=== PATIENT | male | born 1950 | race Hispanic/Latino ===

== ENCOUNTER 2019-07-20 15:00 | Inpatient (IN) | payer OTHER ==
[~2019-07-20] VITALS: Ht 166.4 cm; Wt 66.0 kg
[2019-07-20 12:55] VITALS: BP 144/54
[2019-07-20 13:33] LABS: BASOPHILS % (AUTO) 0.7 % (0.0-5.0); EOSINOPHILS % (AUTO) 0.8 % (0.0-8.0); HEMATOCRIT 43.5 % (42-54); MEAN CORPUSCULAR HEMOGLOBIN 30.8 pg (27.0-33.0); MEAN CORPUSCULAR HGB CONC 33.6 g/dL (32.0-36.0); MEAN CORPUSCULAR VOLUME 91.6 fL (79-99); MONOCYTES % (AUTO) 6.4 % (3.0-13.0); NEUTROPHILS % (AUTO) 69.1 % (40.0-77.0); PLATELET COUNT (AUTO) 240 K/uL (130-400); RED BLOOD CELL COUNT(AUTO) 4.75 MIL/uL (4.50-6.20); RED CELL DISTRIBUTION WIDTH 13.1 % (11.0-15.5); WHITE BLOOD COUNT (AUTO) 8.1 K/uL (4.8-10.8)
[2019-07-20 13:43] LABS: POTASSIUM 4.1 mmol/L (3.5-5.1)
[~2019-07-20 15:00] MED LIST: LOSA25TA41 PO
[2019-07-20] MEDS: CEFAZOLIN SODIUM 1 GM VIAL IVP SCH (15:30)
[2019-07-20] MEDS ORDERED: [UNRECOGNIZED DRUG - OTHER] PO (16:16)
[2019-07-20] MEDS ORDERED: RESV100C PO (16:16)
[2019-07-20] MEDS ORDERED: NAPR-1141 PO (16:16)
[2019-07-20] MEDS ORDERED: LYCO10CA3 PO (16:16)
[2019-07-20] MEDS ORDERED: PROSTATIN PO (16:16)
[2019-07-20] MEDS ORDERED: GLUTATHIONE PO (16:16)
[2019-07-20] MEDS ORDERED: [UNRECOGNIZED DRUG - OTHER] PO (16:16)
[2019-07-20] MEDS ORDERED: [UNRECOGNIZED DRUG - OTHER] PO (16:16)
[2019-07-22] VITALS (27 sets, daily range): BP systolic 109–161; BP diastolic 49–89
[2019-07-22] MEDS ORDERED: LACTATED RINGERS 1000ML 1,000 ML IV ONE (06:23)
[2019-07-22] MEDS ORDERED: THROMBIN-JMI 20000 UNIT KIT TP ONE (06:52)
[2019-07-22] MEDS ORDERED: DURAMORPH PF1 MG/ML 10ML AMP IV ONE (06:52)
[2019-07-22] MEDS ORDERED: BUPIVACAINE/EPI/PF 0.5% 30ML VIAL IJ ONE (06:52)
[2019-07-22] MEDS ORDERED: BACITRACIN 50,000 UNIT VIAL ONE (06:52)
[2019-07-22] MEDS ORDERED: GLYCOPYRROLATE 1 MG/5 ML SYRINGE ONE (06:57)
[2019-07-22] MEDS ORDERED: LIDOCAINE PF 2% 5ML ABBOJECT ONE (06:57)
[2019-07-22] MEDS ORDERED: SUCCINYLCHOLINE 200MG/10ML SYR ONE (06:57)
[2019-07-22] MEDS ORDERED: DEXAMETHASONE SOD PHOSPHATE 10MG/ML 1ML VIAL ONE (06:57)
[2019-07-22] MEDS ORDERED: ONDANSETRON HCL 4 MG/2 ML VIAL ONE (06:58)
[2019-07-22] MEDS ORDERED: ROCURONIUM 10MG/1ML SYR 10 MG/ML ML ONE (06:58)
[2019-07-22] MEDS ORDERED: NEOSTIGMINE 5MG/5ML SYR IV ONE (06:58)
[2019-07-22] MEDS ORDERED: MIDAZOLAM HCL 1 MG/ML 2ML VIAL ONE (06:58)
[2019-07-22] MEDS ORDERED: PROPOFOL 10 MG/ML 20ML VIAL IV ONE ×2 (06:58→08:04)
[2019-07-22] MEDS ORDERED: FENTANYL CITRATE PF 50 MCG/1 ML 2ML VIAL ONE ×2 (06:59→08:11)
[2019-07-22] MEDS ORDERED: LIDOCAINE HCL 4% LTA SOL 4 ML VIAL ONE (07:03)
[2019-07-22] MEDS: CEFAZOLIN SODIUM 1 GM VIAL IVP SCH ×3 (07:30→18:24)
[2019-07-22] MEDS ORDERED: PROPOFOL 1000 MG/100 ML 0 ML IV ONE (08:28)
[2019-07-22] MEDS ORDERED: GENTAMICIN 80 MG/NS 100 ML PB 100 ML IV ONE (09:11)
[2019-07-22] MEDS ORDERED: SODIUM CHLORIDE 0.9% 10 ML VIAL IVP PRN (11:15)
[2019-07-22] MEDS ORDERED: PROMETHAZINE HCL 25 MG/ML 1ML AMPULE IM PRN (11:15)
[2019-07-22] MEDS ORDERED: HYDROCODONE/ACETAMINOPHEN 5/325 MG TAB PO PRN (11:15)
[2019-07-22] MEDS: DEXAMETHASONE SOD PHOSPHATE 4 MG/ML 1ML VIAL IVP SCH ×2 (11:15→18:25)
[2019-07-22] MEDS ORDERED: MORPHINE SULFATE 2 MG/ML 1ML SYG IVP PRN (11:15)
[2019-07-22] MEDS ORDERED: NALOXONE HCL 0.4 MG/1 ML ML ONE (12:04)
[2019-07-22] MEDS: LACTATED RINGERS 1000ML 1,000 ML IV SCH (16:44)
[2019-07-22] MEDS: [UNRECOGNIZED DRUG - OTHER] PO SCH (21:00)
[2019-07-23] VITALS: BP 117/63
[2019-07-23] MEDS: LACTATED RINGERS 1000ML 1,000 ML IV SCH ×2 (00:13→07:55)
[2019-07-23] MEDS: DEXAMETHASONE SOD PHOSPHATE 4 MG/ML 1ML VIAL IVP SCH ×3 (00:13→07:55)
[2019-07-23] MEDS: CEFAZOLIN SODIUM 1 GM VIAL IVP SCH ×3 (03:32→11:05)
[2019-07-23 04:00] VITALS: BP 132/66
[2019-07-23] MEDS: NAPROXEN 250 MG TAB PO PRN (06:12)
[2019-07-23 07:00] VITALS: BP 126/51
[2019-07-23] MEDS: GLUTATHIONE 500 MG PO SCH (07:55)
[2019-07-23] MEDS: RESVERATROL 100 MG PO SCH (07:55)
[2019-07-23] MEDS: [UNRECOGNIZED DRUG - OTHER] PO SCH (07:55)
[2019-07-23] MEDS: [UNRECOGNIZED DRUG - OTHER] PO SCH (07:55)
[2019-07-23] MEDS: LYCOPENE 10 MG PO SCH (07:55)
[2019-07-23] MEDS: PROSTATIN PO SCH (07:55)
[2019-07-23] MEDS: LOSARTAN 50 MG TABLET PO SCH (09:22)
--- NOTE | 2019-07-23 18:05 | NUR ---
INITIAL MET W PT; S/P BACK SURGERY, AAOX 3, ACTIVE, MOVING, RESTLESS; STATES NO DME, DRIVES, INDP OF ADLS, [facility] WILL PROVIDE TRANSPORT HOME WILL FOLLOW UP WITH DR. MOORE FOR ANY DSG CHANGE ORDER TO LUMBAR INCISION. NO HH ORDERS GIVEN AT THIS TIME. PT ON ONE TO ONE FOR AGITATION POST OP/ BAD REACTION TO ANETHESIS. STILL APPEARS VERY HIGH ENERGY. Addendum: 07/23/19 at 2046 by CHANDRIKA BROOKS RN Amended: Links added.
[2019-07-23 20:00] VITALS: BP 108/64
[2019-07-23] MEDS: [UNRECOGNIZED DRUG - OTHER] PO SCH (21:00)
[2019-07-24] MEDS: LACTATED RINGERS 1000ML 1,000 ML IV SCH (03:08)
[2019-07-24] MEDS: CEFAZOLIN SODIUM 1 GM VIAL IVP SCH ×2 (03:15→11:15)
[2019-07-24] MEDS: NAPROXEN 250 MG TAB PO PRN ×2 (03:19→10:53)
[2019-07-24 05:42] VITALS: BP 145/72
[2019-07-24 08:00] VITALS: BP 135/71
--- NOTE | 2019-07-24 08:09 | NUR ---
Dr Velazquez rounded and stated pt could be d/c home today but after home health set up for him; i will speak to cw about setting it up when she arrives
[2019-07-24] MEDS: RESVERATROL 100 MG PO SCH (09:00)
[2019-07-24] MEDS: LYCOPENE 10 MG PO SCH (09:00)
[2019-07-24] MEDS: GLUTATHIONE 500 MG PO SCH (09:00)
[2019-07-24] MEDS: [UNRECOGNIZED DRUG - OTHER] PO SCH (09:00)
[2019-07-24] MEDS: [UNRECOGNIZED DRUG - OTHER] PO SCH (09:00)
[2019-07-24] MEDS: PROSTATIN PO SCH (09:00)
[2019-07-24] MEDS: LOSARTAN 50 MG TABLET PO SCH (10:39)
[2019-07-24 11:00] VITALS: BP 126/62
--- NOTE | 2019-07-24 12:50 | NUR ---
cm note met with patient and informed of md orders for HH, states in agreement, choice letter obtained. kiley made to [place] with dr Velazquez for verification of preferred HH, states to try [facility] if they can accept insurance, if not any HH is fine that is in network with pt. pt in agreement. referral faxed to [facility] for verification.
--- NOTE | 2019-07-24 16:00 | NUR ---
cm note call received from [facility], and that pt is accepted, updated primary nurse suresh to call report at [facility].
--- NOTE | 2019-07-24 16:52 | NUR ---
pt stated understanding of all d/c instructions for after care for a lumbar laminectomy and that he would receive pathology reports on his follow up on 07-31-19; pt stated understanding of all instructions as well as his ; iv access removed and pt take down stairs via wheelchair d/c report called to katelynn at [facility].
== END 2019-07-24 16:48 | disposition home health service (06) | DRG 30 ==
LOC: EDSTATUS 15:00 → DAHIP 07-22 05:36 → 4BH 07-22 11:46 → EDSTATUS 07-22 15:00 → 4BH 07-23 02:10
PROVIDERS: ADMIT Neurological Surgery; ATTEND Neurological Surgery
PROC: 00BY0ZX Excision of Lumbar Spinal Cord, Open Approach, Diagnostic (ICD-10-PCS; principal; 2019-07-22 08:00)
PROC: BR191ZZ Fluoroscopy of Lumbar Spine using Low Osmolar Contrast (ICD-10-PCS; 2019-07-22 08:00)
PROC: 4A11X4G Monitoring of Peripheral Nervous Electrical Activity, Intraoperative, External Approach (ICD-10-PCS; 2019-07-22 08:00)
DX: D32.1 Benign neoplasm of spinal meninges (principal); I10 Essential (primary) hypertension; I49.3 Ventricular premature depolarization
CPT/HCPCS: 36415; 72020; 76998; 80048; 85025; 88305; 88313; A4344; G0378; J0330; J0690; J1100; J1580; J2001; J2250; J2274; J2310; J2405; J2704; J2710; J3010; J3490; J7030; J7120